=== PATIENT | female | born 1995 | race Caucasian/White ===

== ENCOUNTER 2018-02-17 20:02 | Emergency (ER) | payer OTHER ==
[2018-02-17 20:08] VITALS: BP 117/69; PULSE 78; RESP 18; TEMP 97.9
--- NOTE | 2018-02-17 20:44 | ED ---
Headache HPI - General Chief Complaint: Headache Stated Complaint: meningitis exposure Time Seen by Provider: 02/17/18 20:16 Source: RN notes reviewed, old records reviewed Mode of arrival: ambulatory Limitations: no limitations - History of Present Illness Initial Comments: Patient is a 22-year-old female presents to the emergency department today to complain of a headache and occasional neck pain for the past four days. Patient states she's had no fevers or chills. She does report that she was exposed to somebody who was recently diagnosed with meningitis. She does not know if it was bacterial or viral. Patient relates that she has had no fever, no cold like symptoms. Denies any nausea or vomiting chest pain or shortness of breath. - Related Data Home Medications Medication Instructions Recorded Confirmed No Known Home Medications [No 02/17/18 02/17/18 Known Home Medications] Allergies Allergy/AdvReac Type Severity Reaction Status Date / Time amoxicillin Allergy Swelling Verified 02/17/18 20:08 guaifenesin [From Robitussin] Allergy Unknown Verified 07/10/16 18:41 Review of Systems ROS Statement: Those systems with pertinent positive or pertinent negative responses have been documented in the HPI. ROS Other: All systems not noted in ROS Statement are negative. Past Medical History Past Medical History: No Reported History History of Any Multi-Drug Resistant Organisms: None Reported Past Surgical History: Tonsillectomy Past Psychological History: No Psychological Hx Reported Smoking Status: Never smoker Past Alcohol Use History: None Reported Past Drug Use History: None Reported General Exam - General Exam Comments Initial Comments: Well appearing 22 year old female, no acute distress. Limitations: no limitations General appearance: alert, in no apparent distress Head exam: Present: atraumatic, normocephalic, normal inspection Eye exam: Present: normal appearance, PERRL, EOMI. Absent: scleral icterus, conjunctival injection, periorbital swelling ENT exam: Present: normal exam, mucous membranes moist Neck exam: Present: normal inspection, full ROM, other (No meningeal signs, neck has full ROM. ). Absent: tenderness, meningismus, lymphadenopathy Respiratory exam: Present: normal lung sounds bilaterally. Absent: respiratory distress, wheezes, rales, rhonchi, stridor Cardiovascular Exam: Present: regular rate, normal rhythm, normal heart sounds. Absent: systolic murmur, diastolic murmur, rubs, gallop, clicks GI/Abdominal exam: Present: soft, normal bowel sounds. Absent: distended, tenderness, guarding, rebound, rigid Extremities exam: Present: normal inspection, full ROM, normal capillary refill. Absent: tenderness, pedal edema, joint swelling, calf tenderness Back exam: Present: normal inspection Neurological exam: Present: alert, oriented X3, CN II-XII intact Psychiatric exam: Present: normal affect, normal mood Skin exam: Present: warm, dry, intact, normal color. Absent: rash Course Vital Signs 02/17/18 20:06 Temperature 97.9 F Pulse Rate 78 Respiratory 18 Rate Blood Pressure 117/69 O2 Sat by Pulse 98 Oximetry Medical Decision Making - Medical Decision Making This is a well. 22-year-old female complains of intermittent headaches and some neck pain. Was exposed to somebody diagnosed with meningitis. Upon questioning other medical personnel I was likely a viral meningitis that was diagnosed in this area. Patient has no meningeal signs. She appears well. Afebrile. I offered to check lab work, I discussed the most definitive way to identify for meningitis is lumbar puncture. When patient was informed that she stated that she felt well and did not want to proceed with further testing. She stated that she just wanted to be seen and make sure that she had no meningeal signs. I reiterated if she had a fever or any other worsening signs or symptoms she must return for further evaluation. Patient agrees to do so. Disposition Clinical Impression: Meningitis exposure Disposition: HOME SELF-CARE Condition: Good Instructions: Acute Headache (ED) Additional Instructions: Patient has a Motrin Tylenol for pain. If there are any fevers or worsening neck pain or other symptoms please return to the emergency department for further testing. Is patient prescribed a controlled substance at d/c from ED?: No When asked, does pt state using other controlled substances?: No If prescribed controlled substance>3 days was MAPS reviewed?: No If opioid is for acute pain is fill amount 7 days or less?: No If Rx opioid, was Start Talking consent form obtained?: No Referrals: Geoff Mehta MD [Primary Care Provider] - 1-2 days Time of Disposition: 20:44
== END 2018-02-17 20:55 | disposition home or self-care (01) ==
LOC: EC 20:02
DX: Z20.828 Contact with and (suspected) exposure to other viral communicable diseases (principal); R51 Headache; M54.2 Cervicalgia; Z88.0 Allergy status to penicillin; Z88.8 Allergy status to other drugs, medicaments and biological substances
CPT/HCPCS: 99284

== ENCOUNTER 2019-10-15 09:27 | Inpatient (IN) | payer BC, OTHER ==
[2019-10-15] MEDS ORDERED: KETOROLAC 30 MG/ML 1 ML VIAL IVP STA (10:24)
--- NOTE | 2019-10-15 10:26 | ED ---
ENT HPI - General Source: patient, RN notes reviewed Mode of arrival: ambulatory Limitations: no limitations <Herb Alberts - Last Filed: 10/15/19 12:03> <Vic Kirk - Last Filed: 10/15/19 12:32> - General Chief complaint: ENT Stated complaint: Facial swelling Time Seen by Provider: 10/15/19 10:08 - History of Present Illness Initial comments: This a 24-year-old female presents emergency Department with chief complaint of left-sided facial swelling. Patient states that she was treated last week for sinus infection. Patient states that she passed her Z-Carlito and follow-up with her PCP who told her take Zyrtec. She used a nedipot on Sunday along with started on Biaxin and she's had worsening pain, facial swelling. Patient states that she's never had any like this in the past she reports subjective fever no significant cough, neck pain, neck stiffness or dizziness. Patient denies any chance . (Herb Alberts) - Related Data Home Medications Medication Instructions Recorded Confirmed Clarithromycin [Biaxin] 500 mg PO Q12HR 10/15/19 10/15/19 Ibuprofen [Motrin] 600 mg PO Q8HR PRN 10/15/19 10/15/19 diphenhydrAMINE [Benadryl] 50 mg PO DAILY PRN 10/15/19 10/15/19 Allergies Allergy/AdvReac Type Severity Reaction Status Date / Time amoxicillin Allergy Swelling Verified 10/15/19 12:12 guaifenesin [From Robitussin] Allergy Unknown Verified 10/15/19 12:12 Review of Systems ROS Other: All systems not noted in ROS Statement are negative. <Herb Alberts - Last Filed: 10/15/19 12:03> ROS Other: All systems not noted in ROS Statement are negative. <Vic Kirk - Last Filed: 10/15/19 12:32> ROS Statement: Those systems with pertinent positive or pertinent negative responses have been documented in the HPI. Past Medical History Past Medical History: No Reported History History of Any Multi-Drug Resistant Organisms: None Reported Past Surgical History: Tonsillectomy Past Psychological History: No Psychological Hx Reported Smoking Status: Never smoker Past Alcohol Use History: None Reported Past Drug Use History: None Reported <Herb Alberts - Last Filed: 10/15/19 12:03> General Exam Limitations: no limitations General appearance: alert, in no apparent distress Head exam: Present: atraumatic, normocephalic, normal inspection Eye exam: Present: normal appearance, PERRL, EOMI, periorbital swelling (Mild inferior left eye), other (No pain with ocular movement). Absent: scleral icterus, conjunctival injection ENT exam: Present: mucous membranes moist, TM's normal bilaterally, normal external ear exam, other (Moderate discomfort palpation to the left maxillary region, moderate swelling). Absent: normal oropharynx (No obvious dental abscess) Neck exam: Present: normal inspection, full ROM. Absent: tenderness, meningismus, lymphadenopathy Respiratory exam: Present: normal lung sounds bilaterally. Absent: respiratory distress, wheezes, rales, rhonchi, stridor Cardiovascular Exam: Present: normal rhythm, tachycardia, normal heart sounds. Absent: systolic murmur, diastolic murmur, rubs, gallop, clicks <Herb Alberts - Last Filed: 10/15/19 12:03> Course <Vic Kirk - Last Filed: 10/15/19 12:32> Vital Signs 10/15/19 10/15/19 09:47 11:59 Temperature 98 F Pulse Rate 120 H 86 Respiratory 18 16 Rate Blood Pressure 112/71 112/61 O2 Sat by Pulse 100 100 Oximetry - Reevaluation(s) Reevaluation #1: 10/15/19 12:31 PA supervision: I proceeded [id number] evaluation the patient she does present with complaints of left facial swelling she's been on antibiotics for several days but is getting worse CAT scan evidence does show facial sialitis and 18 abscess formation. Assistance in addition of sinusitis. I did discuss the case with Dr. Faulkner. H will be admitted with IV antibiotics and ENT consultation by Dr. York. Do agree with the assessment and plan. (Vic Kirk) Medical Decision Making - Lab Data Result diagrams: 10/15/19 10:50 10/15/19 10:50 <Herb Alberts - Last Filed: 10/15/19 12:03> - Lab Data Result diagrams: 10/15/19 10:50 10/15/19 10:50 <Vic Kirk - Last Filed: 10/15/19 12:32> - Medical Decision Making Patient CT shows pre-maxillary cellulitis with abscess formation. Patient be admitted for outpatient treatment with IV antibiotics and ENT (Herb Alberts) - Lab Data Lab Results 10/15/19 10/15/19 Range/Units 10:50 10:50 WBC 11.6 H (3.8-10.6) k/uL RBC 4.21 (3.80-5.40) m/uL Hgb 12.4 (11.4-16.0) gm/dL Hct 37.4 (34.0-46.0) % MCV 88.9 (80.0-100.0) fL MCH 29.4 (25.0-35.0) pg MCHC 33.1 (31.0-37.0) g/dL RDW 12.2 (11.5-15.5) % Plt Count 272 (150-450) k/uL Neutrophils % 85 % Lymphocytes % 8 % Monocytes % 5 % Eosinophils % 1 % Basophils % 0 % Neutrophils # 9.8 H (1.3-7.7) k/uL Lymphocytes # 1.0 (1.0-4.8) k/uL Monocytes # 0.5 (0-1.0) k/uL Eosinophils # 0.1 (0-0.7) k/uL Basophils # 0.0 (0-0.2) k/uL Sodium 142 (137-145) mmol/L Potassium 4.2 (3.5-5.1) mmol/L Chloride 109 H (98-107) mmol/L Carbon Dioxide 24 (22-30) mmol/L Anion Gap 9 mmol/L BUN 10 (7-17) mg/dL Creatinine 0.62 (0.52-1.04) mg/dL Est GFR (CKD-EPI)AfAm >90 (>60 ml/min/1.73 sqM) Est GFR (CKD-EPI)NonAf >90 (>60 ml/min/1.73 sqM) Glucose 93 (74-99) mg/dL Calcium 8.6 (8.4-10.2) mg/dL Total Bilirubin 1.5 H (0.2-1.3) mg/dL AST 20 (14-36) U/L ALT 9 (4-34) U/L Alkaline Phosphatase 77 (38-126) U/L Total Protein 7.5 (6.3-8.2) g/dL Albumin 4.2 (3.5-5.0) g/dL Disposition <Herb Alberts - Last Filed: 10/15/19 12:03> <Vic Kirk - Last Filed: 10/15/19 12:32> Clinical Impression: Cellulitis and abscess of face Disposition: ADMITTED IP TO THIS HOSP Condition: Fair Referrals: Gefof Mehta MD [Primary Care Provider] - 1-2 days
[2019-10-15 11:16] LABS: Basophils % (A) 0 %; Eosinophils # (A) 0.1 k/uL (0-0.7); Eosinophils % (A) 1 %; HCT 37.4 % (34.0-46.0); HGB 12.4 gm/dL (11.4-16.0); Lymphocytes % (A) 8 %; MCH 29.4 pg (25.0-35.0); MCHC 33.1 g/dL (31.0-37.0); MCV 88.9 fL (80.0-100.0); Mean Platelet Volume 8.8; Monocytes # (A) 0.5 k/uL (0-1.0); Monocytes % (A) 5 %; Neutrophils # (A) 9.8 k/uL (1.3-7.7); Neutrophils % (A) 85 %; Platelet Count 272 k/uL (150-450); RBC 4.21 m/uL (3.80-5.40); RDW 12.2 % (11.5-15.5); WBC 11.6 k/uL (3.8-10.6)
--- NOTE | 2019-10-15 11:20 | CT ---
EXAMINATION TYPE: CT sinus w con DATE OF EXAM: 10/15/2019 COMPARISON: None HISTORY: 24-year-old female with left sided facial swelling, sinus infection TECHNIQUE: Contiguous axial scanning of the paranasal sinuses performed with IV Contrast, patient inj ected with 100 mL of Isovue 300. Coronal reconstructions performed. CT DLP: 413.7 mGycm Automated exposure control for dose reduction was used. FINDINGS: Air fluid level right maxillary sinus. Mild to moderate mucosal thickening inferior left maxillary si nus. Trace mucosal thickening right sphenoid sinus and scattered throughout the ethmoid air cells. Fr ontal sinuses are well pneumatized. No osseous erosions or destruction of the sinus silva. There is left-sided premaxillary soft tissue swelling and thickening extending along the left lateral aspect of the nose and down to the anterior upper lip region. Additional soft tissue swelling extend s along the left perimandibular region. There is an underlying thick walled fluid collection which courses obliquely overlying the frontal pr ocesses of the left maxilla down to the midline alveolar ridge spanning 2.6 cm long and 1.2 cm thick, refer to coronal image 19 through 23 and axial images 20 through 29. No significant periodontal disease is identified. Globes appear symmetrical. No abnormal density within the orbits. IMPRESSION: 1. EXTENSIVE LEFT SIDED PREMAXILLARY CELLULITIS. CELLULITIS EXTENDS ALONG THE LATERAL ASPECT OF THE L EFT NOSE AND DOWN TO THE LEFT PREMANDIBULAR REGION. 2. UNDERLYING ABSCESS WHICH COURSES OBLIQUELY MEASURING 2.6 CM LONG AND 1.2 CM THICK. THIS IS LOCATED JUST ALONG THE LEFT LATERAL AND INFERIOR MARGIN OF THE NASAL APERTURE EXTENDING DOWN TO THE LEVEL OF THE MIDLINE MAXILLARY ALVEOLAR RIDGE. 3. AIR-FLUID LEVEL RIGHT MAXILLARY SINUS SUGGESTING ACUTE SINUSITIS. 4. BACKGROUND OF MILD CHRONIC VASQUEZ SINUS DISEASE. NO SIGNIFICANT PERIODONTAL DISEASE SEEN.
[2019-10-15 11:23] LABS: ALT 9 U/L (4-34); AST 20 U/L (14-36); African American GFR (CKD) >90 (>60 ml/min/1.73 sqM); Albumin 4.2 g/dL (3.5-5.0); Alkaline Phosphatase 77 U/L (38-126); Anion Gap 9 mmol/L; Blood Urea Nitrogen 10 mg/dL (7-17); Calcium 8.6 mg/dL (8.4-10.2); Carbon Dioxide 24 mmol/L (22-30); Chloride 109 mmol/L (98-107); Glucose 93 mg/dL (74-99); Non-African American GFR(CKD) >90 (>60 ml/min/1.73 sqM); Potassium 4.2 mmol/L (3.5-5.1); Sodium 142 mmol/L (137-145); Total Bilirubin 1.5 mg/dL (0.2-1.3); Total Protein 7.5 g/dL (6.3-8.2)
[2019-10-15] MEDS ORDERED: CLINDAMYCIN 600 MG in DEXTROSE 5% IN WATER 50 ML IVPB STA ×2 (12:02)
[2019-10-15] MEDS ORDERED: HYDROcodone/APAP 5-325MG 1 EACH TAB PO PRN (12:04)
[2019-10-15] MEDS: SODIUM CHLORIDE 0.9% 1,000 ML IV SCH (13:10)
[2019-10-15] MEDS ORDERED: ACETAMINOPHEN TAB 325 MG TAB PO PRN (14:45)
--- NOTE | 2019-10-15 16:56 | P.HPIM ---
History of Present Illness H&P Date: 10/15/19 Chief Complaint: Facial swelling This is a 24-year-old female with no significant past medical history, presented to the ER with complaints of sinusitis, left-sided facial swelling, failed outpatient treatment of 3 weeks. Completed Z-Carlito, Zyrtec, with no improvement. Attempted using medical pot, return to PCP received Rx for Biaxin. Continued having worsening sinus pain and facial edema. Reports possible fever, no cough, no neck pain, no neck stiffness. Sinus CT reporting extensive left-sided premaxillary cellulitis extending along the lateral aspect of the leftand down to the left mandibular region, underlying abscess, measuring 2.6 cm long and 1.2 cm thick located along the left lateral and inferior margin of the nasal aperture extending down to the midline maxillary alveolar ridge, air-fluid level right maxillary sinus suggestive of acute sinusitis, mild chronic pansinus disease with no significant peridontal disease seen. Afebrile, WBC elevated 11.6. Vital signs stable, maintaining O2 sats in the high 90s on room air. IV antibiotics of clindamycin initiated. ENT consulted. Review of Systems ROS Other: All systems not noted in ROS Statement are negative. ROS Statement: Those systems with pertinent positive or pertinent negative responses have been documented in the HPI. Past Medical History Past Medical History: No Reported History History of Any Multi-Drug Resistant Organisms: None Reported Past Surgical History: Tonsillectomy Past Anesthesia/Blood Transfusion Reactions: No Reported Reaction Smoking Status: Never smoker Medications and Allergies Home Medications Medication Instructions Recorded Confirmed Type Clarithromycin [Biaxin] 500 mg PO Q12HR 10/15/19 10/15/19 History Ibuprofen [Motrin] 600 mg PO Q8HR PRN 10/15/19 10/15/19 History diphenhydrAMINE [Benadryl] 50 mg PO DAILY PRN 10/15/19 10/15/19 History Allergies Allergy/AdvReac Type Severity Reaction Status Date / Time amoxicillin Allergy Swelling Verified 10/15/19 12:12 guaifenesin [From Robitussin] Allergy Unknown Verified 10/15/19 12:12 Physical Exam Vitals: Vital Signs Temp Pulse Pulse Resp BP BP Pulse Ox 10/15/19 14:59 98.3 F 95 16 98/66 98 10/15/19 11:59 86 16 112/61 100 10/15/19 09:47 98 F 120 H 18 112/71 100 Intake and Output 10/15/19 10/15/19 10/15/19 06:59 14:59 22:59 Other: Voiding Method Toilet # Voids 1 Weight 63.503 kg 63.503 kg PHYSICAL EXAM: VITAL SIGNS: As above GENERAL: Sitting up on stretcher, no acute distress HEENT: Left-sided facial edema involving ethmoid sinus into facial nerves. Conjunctivae normal. eyes normal. NECK: No JVD. No thyroid enlargement. No LNs. Trachea midline. CARDIOVASCULAR: S1, S2 regular.No murmur RESPIRATION: Breath sounds diminished in the bases. No rhonchi or crackles. No bronchial breathing. ABDOMEN: Soft, nontender . No guarding. no masses palpable. No ascites, No hepatosplenomegaly.Bowel sounds heard. LEGS: No edema. no swelling PSYCHIATRY: Alert and oriented X3, mood and affect normal. NERVOUS SYSTEM: Cranial N 2-12 grossly normal. Moves all 4 limbs. No focal deficits. Strength and sensation grossly intact.. Skin: no rash Joints: No active swelling. No inflammation. Lymphatic system. No LN neck axilla. Results CBC & Chem 7: 10/15/19 10:50 10/15/19 10:50 Labs: Abnormal Lab Results - Last 24 Hours (Table) 10/15/19 10/15/19 Range/Units 10:50 10:50 WBC 11.6 H (3.8-10.6) k/uL Neutrophils # 9.8 H (1.3-7.7) k/uL Chloride 109 H (98-107) mmol/L Total Bilirubin 1.5 H (0.2-1.3) mg/dL Thrombosis Risk Factor Assmnt - Choose All That Apply Each Factor Represents 1 point: Medical pt on bed rest Other Risk Factors: No Other congenital or acquired thrombophilia - If yes, enter type in comment: No Thrombosis Risk Factor Assessment Total Risk Factor Score: 1 Thrombosis Risk Factor Assessment Level: Low Risk Assessment and Plan Assessment: Acute sinusitis, failed outpatient treatment with underlying abscess along the left lateral nasal extending to the midline maxillary alveolar ridge measuring 2.6 cm long by 1.2 cm thick Leukocytosis secondary to the above Plan: Continue current medication regime ,monitoring and symptomatic treatment. HCG ordered. Maintain IV fluid hydration, IV antibiotics of clindamycin to 6 hours. ENT consult in place, recommendations pending. Further recommendations to follow. The impression and plan of care has been dictated as directed. : I performed a history and examination of this patient, discussed the same with the dictator. I agree with the dictator's note ,documented as a scribe. Any additional findings or plans will be noted.
[2019-10-15] MEDS: CLINDAMYCIN 600 MG in DEXTROSE 5% IN WATER 50 ML IVPB SCH ×4 (18:08→23:36)
[2019-10-15] MEDS: KETOROLAC 30 MG/ML 1 ML VIAL IVP PRN (18:32)
[2019-10-16] MEDS: KETOROLAC 30 MG/ML 1 ML VIAL IVP PRN (02:56)
[2019-10-16] MEDS: SODIUM CHLORIDE 0.9% 1,000 ML IV SCH ×2 (03:26→18:12)
[2019-10-16] MEDS: CLINDAMYCIN 600 MG in DEXTROSE 5% IN WATER 50 ML IVPB SCH ×8 (05:23→23:52)
[2019-10-16 09:12] LABS: Basophils % (A) 0 %; Eosinophils # (A) 0.1 k/uL (0-0.7); Eosinophils % (A) 1 %; HCT 33.4 % (34.0-46.0); HGB 11.1 gm/dL (11.4-16.0); Lymphocytes # (A) 0.4 k/uL (1.0-4.8); Lymphocytes % (A) 5 %; MCH 29.4 pg (25.0-35.0); MCHC 33.1 g/dL (31.0-37.0); MCV 88.9 fL (80.0-100.0); Mean Platelet Volume 8.9; Monocytes # (A) 0.3 k/uL (0-1.0); Monocytes % (A) 4 %; Neutrophils # (A) 6.3 k/uL (1.3-7.7); Neutrophils % (A) 89 %; Platelet Count 223 k/uL (150-450); RBC 3.76 m/uL (3.80-5.40); RDW 12.1 % (11.5-15.5); WBC 7.1 k/uL (3.8-10.6)
[2019-10-16 09:29] LABS: African American GFR (CKD) >90 (>60 ml/min/1.73 sqM); Anion Gap 10 mmol/L; Blood Urea Nitrogen 12 mg/dL (7-17); Calcium 8.2 mg/dL (8.4-10.2); Carbon Dioxide 22 mmol/L (22-30); Chloride 107 mmol/L (98-107); Glucose 97 mg/dL (74-99); Non-African American GFR(CKD) >90 (>60 ml/min/1.73 sqM); Potassium 3.8 mmol/L (3.5-5.1); Sodium 139 mmol/L (137-145)
[2019-10-16] MEDS ORDERED: ONDANSETRON 4 MG/2 ML VIAL IVP PRN (13:19)
[2019-10-16] MEDS: DEXAMETHASONE SOD PHOSPHATE 10 MG/ML 1 ML VIAL IV SCH ×2 (14:45→21:14)
[2019-10-16] MEDS: PANTOPRAZOLE 40 MG/10 ML VIAL IVP SCH (14:45)
--- NOTE | 2019-10-16 16:29 | P.PN ---
Subjective Progress Note Date: 10/16/19 This is a 24-year-old female with no significant past medical history, presented to the ER with complaints of sinusitis, left-sided facial swelling, failed outpatient treatment of 3 weeks. Completed Z-Carlito, Zyrtec, with no improvement. Attempted using medical pot, return to PCP received Rx for Biaxin. Continued having worsening sinus pain and facial edema. Reports possible fever, no cough, no neck pain, no neck stiffness. Sinus CT reporting extensive left-sided premaxillary cellulitis extending along the lateral aspect of the leftand down to the left mandibular region, underlying abscess, measuring 2.6 cm long and 1.2 cm thick located along the left lateral and inferior margin of the nasal aper ture extending down to the midline maxillary alveolar ridge, air-fluid level right maxillary sinus suggestive of acute sinusitis, mild chronic pansinus disease with no significant peridontal disease seen. Afebrile, WBC elevated 11.6. Vital signs stable, maintaining O2 sats in the high 90s on room air. IV antibiotics of clindamycin initiated. ENT consulted. 10/16/2019 maintaining on IV clindamycin. Significant clinical improvement, facial edema much improved, currently afebrile with T-max 99.4, WBC normalized at 7.1. Hemoglobin 11.1. Blood cultures pending. Maintained on IV fluid hydration. Tolerating diet with no nausea vomiting or diarrhea. Evaluated by ENT recommending another 24 hours of IV antibiotics. Pain controlled on Toradol. Denies chest pain, palpitations or shortness of breath. Objective - Vital Signs Vital signs: Vital Signs Temp 98.5 F 10/16/19 11:38 Pulse 107 H 10/16/19 11:38 Resp 18 10/16/19 11:38 BP 105/58 10/16/19 11:38 Pulse Ox 100 10/16/19 11:38 Intake & Output 10/15/19 10/16/19 10/16/19 18:59 06:59 18:59 Intake Total 1929 240 Balance 1929 240 Weight 63.503 kg Intake: Intake, IV Titration 750 Amount Sodium Chloride 0.9% 1, 750 000 ml @ 75 mls/hr IV . [id number] DOMINGO Rx#:[id number] Oral 1180 240 Other: Voiding Method Toilet Toilet Toilet # Voids 1 2 3 - Exam PHYSICAL EXAM: VITAL SIGNS: As above GENERAL: Sitting up in bed, no acute distress HEENT: Left-sided facial edema improving with increased sensation affected area. Conjunctivae normal. eyes normal. NECK: No JVD. No thyroid enlargement. No LNs. Trachea midline. CARDIOVASCULAR: S1, S2 regular.No murmur RESPIRATION: Breath sounds diminished in the bases. No rhonchi or crackles. No wheezing. ABDOMEN: Soft, nontender . No guarding. no masses palpable. Bowel sounds heard. LEGS: No edema. no swelling PSYCHIATRY: Alert and oriented X3, mood and affect normal. NERVOUS SYSTEM: Cranial N 2-12 grossly normal. Moves all 4 limbs. No focal deficits. Strength and sensation grossly intact.. Skin: no rash - Labs CBC & Chem 7: 10/16/19 08:48 10/16/19 08:48 Labs: Abnormal Lab Results - Last 24 Hours (Table) 10/16/19 10/16/19 Range/Units 08:48 08:48 RBC 3.76 L (3.80-5.40) m/uL Hgb 11.1 L (11.4-16.0) gm/dL Hct 33.4 L (34.0-46.0) % Lymphocytes # 0.4 L (1.0-4.8) k/uL Calcium 8.2 L (8.4-10.2) mg/dL Microbiology - Last 24 Hours (Table) 10/15/19 11:08 Blood Culture - Preliminary Blood No Growth after 24 hours Assessment and Plan Assessment: Acute sinusitis, failed outpatient treatment with underlying abscess along the left lateral nasal extending to the midline maxillary alveolar ridge measuring 2.6 cm long by 1.2 cm thick, improving Leukocytosis secondary to the above Plan: Continue current medication regime ,monitoring and symptomatic treatment. HCG ordered. Continue IV fluid hydration, IV antibiotics of clindamycin to 6 hours for another 24 hours as per ENT. Discharge planning in progress for tomorrow, pending ENT clearance. The impression and plan of care has been dictated as directed. : I performed a history and examination of this patient, discussed the same with the dictator. I agree with the dictator's note ,documented as a scribe. Any additional findings or plans will be noted.
[2019-10-17] MEDS: SODIUM CHLORIDE 0.9% 1,000 ML IV SCH ×2 (04:25→10:09)
[2019-10-17] MEDS: CLINDAMYCIN 600 MG in DEXTROSE 5% IN WATER 50 ML IVPB SCH ×4 (05:17→10:08)
--- NOTE | 2019-10-17 05:29 | CONS ---
CONSULTATION DATE OF ADMISSION: 10/15/2019 DATE OF CONSULTATION: 10/16/2019. REASON FOR CONSULTATION: Left facial cellulitis/abscess. HISTORY OF PRESENT ILLNESS: This patient is a pleasant 24-year-old female who states that over the past 2 to 3 weeks she has experienced increasing swelling, pressure and pain in the left side of her face. She has seen her family physician and has been placed on several courses of oral antibiotics including a Z-Carlito and also by Biaxin. She was placed on these medications because she has a known to allergy to PENICILLIN. The apparent infection did not respond to this medication and the patient was subsequently seen in the emergency room department and was eventually admitted to the hospital for definitive treatment. After admission to the hospital, she was placed on IV antibiotics, namely Cleocin 600 mg IV q.6 hours. Since her initial admission, the patient states that she feels much better today. She also relates that she felt that there was some purulent material that may have drained from the area. A CT scan of her neck revealed that the patient had moderate facial cellulitis on the left side and a probable abscess pocket located in the left premaxilla region. The patient states that the pain has markedly decreased. She is able to eat and the area is no longer exquisitely tender to touch. PAST MEDICAL HISTORY: Past medical history reveals the patient has a known allergy to AMOXICILLIN. She is a nonsmoker. She is not currently on any medications. REVIEW OF SYSTEM: The review of systems is noncontributory. PHYSICAL EXAMINATION: This patient is a very pleasant 24-year-old female who is alert, cooperative and well oriented to time and place. The patient is not experiencing any significant discomfort at this time. HEENT EXAMINATION: Patient is normocephalic. Tympanic membranes are normal. Middle ear spaces are free of any fluid or infection. Pupils are equal, round, reactive to light and accommodation. Extraocular movements are within normal limits. Intranasal examination reveals the septum slightly deviated. No evidence of any intranasal lesions or swelling. Examination of the oropharynx is unremarkable. Palpation of the face including bimanual palpation of the upper buccal area reveals some slight firmness, but no definite fluctuance or suspicious areas of probable abscess. In addition to this, intraoral examination does not detect any obvious areas where this region has drained. The area is only slightly tender to very deep palpation and again I cannot locate any definite pocket of fluid on the patient's face at this time. There is definitely cellulitis present still, however. Palpation of the neck is negative for any neck adenopathy. Cranial nerves 2 through 12 and remainder of the head and neck exam is unremarkable. CHEST/CARDIOVASCULAR: Both lung ramirez are clear to percussion and auscultation. Patient is in regular sinus rhythm. S1, S2 are present any murmurs. ABDOMEN: There is no evidence masses, megaly, or tenderness. The abdomen is soft. The remainder of physical examination is essentially unremarkable. IMPRESSION: Left facial cellulitis with resolving left facial abscess in the premaxilla area. PLAN: At this time I discussed with the patient and her family that because it seems as if this region has spontaneously drained, I feel that it will probably continue to drain and this may obviate any need for any surgical drainage. However, I will check the patient tomorrow on 10/17/2019, around noon time and see how she is progressing. Certainly, if at that time she is continuing to improve and I do not detect any evidence of any obvious abscess, I feel this patient could be discharged on oral Cleocin for 7 days at 300 mg p.o. t.i.d. I have cautioned the patient and her family that should she develop any diarrhea she should immediately stop the medication and call her primary care physician. I am going to have the nurses give the patient a regimen of Decadron intravenously which should help reduce some of the facial swelling. The patient's father showed me a picture of what the patient appeared like several days ago and the improvement is quite obvious considering that at that time her left eye was almost swollen shut. I want to take this opportunity to thank you for allowing me to assist you in the care of your patient and as I stated above I will see this patient tomorrow at approximately noon after I finished my surgical cases and make a decision as to whether or not she can be discharged to home on oral medications. If I can be of any further assistance, please feel free to call my office. BAR / NOEMI: [phone] /
[2019-10-17] MEDS ORDERED: DEXAMETHASONE SOD PHOSPHATE 4 MG/ML 1 ML VIAL IV SCH ×2 (05:30→21:30)
[2019-10-17 05:47] VITALS: RESP 16
[2019-10-17] MEDS: PANTOPRAZOLE 40 MG/10 ML VIAL IVP SCH (07:13)
[2019-10-17 09:31] LABS: African American GFR (CKD) >90 (>60 ml/min/1.73 sqM); Anion Gap 10 mmol/L; Blood Urea Nitrogen 9 mg/dL (7-17); Calcium 8.7 mg/dL (8.4-10.2); Carbon Dioxide 22 mmol/L (22-30); Chloride 107 mmol/L (98-107); Glucose 132 mg/dL (74-99); Non-African American GFR(CKD) >90 (>60 ml/min/1.73 sqM); Potassium 4.1 mmol/L (3.5-5.1); Sodium 139 mmol/L (137-145)
[2019-10-17 09:39] LABS: HCT 34.7 % (34.0-46.0); HGB 11.4 gm/dL (11.4-16.0); MCH 29.5 pg (25.0-35.0); MCHC 32.9 g/dL (31.0-37.0); MCV 89.8 fL (80.0-100.0); Mean Platelet Volume 8.6; Platelet Count 229 k/uL (150-450); RBC 3.86 m/uL (3.80-5.40); RDW 12.1 % (11.5-15.5); WBC 3.9 k/uL (3.8-10.6)
[2019-10-17 11:46] VITALS: BP 101/65; PULSE 74; TEMP 98
--- NOTE | 2019-10-17 13:10 | P.DS ---
Providers Date of admission: 10/15/19 12:31 Expected date of discharge: 10/17/19 Attending physician: Rell Faulkner Consults: 10/15/19 13:03 Consult Physician Urgent Consulting Provider: Denton York Consult Reason/Comments: Facial cellulitis, abscess Do you want consulting provider notified?: Yes Primary care physician: Geoff Kirkbride Center Course: Final Diagnoses: Acute sinusitis, failed outpatient treatment. left facial cellulitis with underlying abscess along the left lateral nasal extending to the midline maxillary alveolar ridge measuring 2.6 cm long by 1.2 cm thick, improving Leukocytosis secondary to the above Hospital course:This is a 24-year-old female with no significant past medical history, presented to the ER with complaints of sinusitis, left-sided facial swelling, failed outpatient treatment of 3 weeks. Completed Z-Carlito, Zyrtec, with no improvement. Attempted using medical pot, return to PCP received Rx for Biaxin. Continued having worsening sinus pain and facial edema. Reports possible fever, no cough, no neck pain, no neck stiffness. Sinus CT reporting extensive left-sided premaxillary cellulitis extending along the lateral aspect of the leftand down to the left mandibular region, underlying abscess, measuring 2.6 cm long and 1.2 cm thick located along the left lateral and inferior margin of the nasal aperture extending down to the midline maxillary alveolar ridge, air-fluid level right maxillary sinus suggestive of acute sinusitis, mild chronic pansinus disease with no significant peridontal disease seen. Afebrile, WBC elevated 11.6. Vital signs stable, maintaining O2 sats in the high 90s on room air. IV antibiotics of clindamycin initiated. ENT consulted. 10/16/2019 maintaining on IV clindamycin. Significant clinical improvement, facial edema much improved, currently afebrile with T-max 99.4, WBC normalized at 7.1. Hemoglobin 11.1. Blood cultures pending. Maintained on IV fluid hydration. Tolerating diet with no nausea vomiting or diarrhea. Evaluated by ENT recommending another 24 hours of IV antibiotics. Pain controlled on Toradol. Denies chest pain, palpitations or shortness of breath. Evaluated by a Dr. Denton York, ENT surgery, recommendations noted and appreciated. Maintained on IV clindamycin, IV Decadron with significant clinical improvement. Reevaluation today by ENT pending; potential I/D, potentially another 24 hours on IV antibiotics. Patient will be discharged home in a stable condition with guarded prognosis pending ENT clearance, final DC recommendations. - Exam GENERAL:A&OX3, NAD, sitting up in chair. HEENT: Left-sided facial edema improving with increased sensation affected area. Conjunctivae normal. eyes normal. NECK: No JVD. No thyroid enlargement. No LNs. Trachea midline. CARDIOVASCULAR: S1, S2 regular.No murmur RESPIRATION: Breath sounds diminished in the bases. No rhonchi or crackles. No wheezing. ABDOMEN: Soft, nontender . No guarding. no masses palpable. Bowel sounds heard. LEGS: No edema. no swelling PSYCHIATRY: Alert and oriented X3, mood and affect normal. NERVOUS SYSTEM: Cranial N 2-12 grossly normal. Moves all 4 limbs. No focal deficits. Strength and sensation grossly intact.. Skin: no rash The impression and plan of care has been dictated as directed. : I performed a history and examination of this patient, discussed the same with the dictator. I agree with the dictator's note ,documented as a scribe. Any additional findings or plans will be noted. Patient Condition at Discharge: Stable Plan - Discharge Summary Discharge Rx Participant: No New Discharge Prescriptions: New Clindamycin [Cleocin] 300 mg PO TID #42 capsule No Action Ibuprofen [Motrin] 600 mg PO Q8HR PRN PRN Reason: Pain Or Fever > 100.5 Discharge Medication List Ibuprofen [Motrin] 600 mg PO Q8HR PRN 10/15/19 [History] Clindamycin [Cleocin] 300 mg PO TID #42 capsule 10/17/19 [Rx] Follow up Appointment(s)/Referral(s): Denton York MD [STAFF PHYSICIAN] - 1 Week (Patient to call Dr. York's office sunday morning to schedule follow up appointment. The office is closed at time of discharge. ) Geoff Mehta MD [Primary Care Provider] - 10/22/19 4:15 pm Ambulatory/Diagnostic Orders: Complete Blood Count w/diff [LAB.AMB] Time Frame: 3 Days, Location: None Selected Patient Instructions/Handouts: Clindamycin (By mouth), Cellulitis (DC), Abscess (ED) Activity/Diet/Wound Care/Special Instructions: Pending Dr. Denton York clearance
== END 2019-10-17 15:20 | disposition home or self-care (01) | DRG 603 ==
LOC: EC 09:27 → 5NMEDONC 12:31
PROVIDERS: ADMIT Family Medicine; ATTEND Family Medicine
DX: L02.01 Cutaneous abscess of face (principal); L03.211 Cellulitis of face; J01.00 Acute maxillary sinusitis, unspecified; Z88.0 Allergy status to penicillin; Z88.8 Allergy status to other drugs, medicaments and biological substances
CPT/HCPCS: 36415; 70487; 80048; 80053; 81025; 85025; 85027; 87040; 96361; 96365; 96375; 99284

== ENCOUNTER 2020-04-24 20:29 | Emergency (ER) | payer BC ==
[2020-04-24 20:38] VITALS: PULSE 98
--- NOTE | 2020-04-24 21:39 | XR ---
EXAMINATION TYPE: XR forearm LT DATE OF EXAM: 04/24/2020 COMPARISON: NONE HISTORY: Fall. Pain. TECHNIQUE: 2 views FINDINGS: Radius and ulna appear intact. Carpal bones are intact. Elbow joint is intact. There is no sign of elbow joint effusion. IMPRESSION: Negative left forearm exam.
--- NOTE | 2020-04-24 21:41 | XR ---
EXAMINATION TYPE: XR elbow complete LT DATE OF EXAM: 04/24/2020 COMPARISON: NONE HISTORY: Fall. Pain. TECHNIQUE: 3 views FINDINGS: Elbow joint spaces are normal. There is elbow joint effusion with posterior fat pad sign. T here is slight irregularity of the cortex of the lateral aspect of the radial head. IMPRESSION: Elbow joint effusion. Possible nondisplaced cortical fracture lateral aspect of the left femoral neck.
[2020-04-24] MEDS ORDERED: HYDROcodone/APAP 5-325MG 1 EACH TAB PO STA (22:15)
[2020-04-24 22:21] VITALS: BP 127/77; RESP 16; TEMP 98.6
[2020-04-24] MEDS ORDERED: IBUPROFEN 600 MG STARTER PACK 4 TAB BTL PO STA (22:21)
--- NOTE | 2020-04-24 22:23 | ED ---
General Adult HPI - General Chief complaint: Extremity Injury, Upper Stated complaint: Fall, L Elbow Injury Time Seen by Provider: 04/24/20 21:00 Source: patient, RN notes reviewed, old records reviewed Mode of arrival: ambulatory Limitations: no limitations - History of Present Illness Initial comments: 25-year-old female patient presents ED for evaluation of left elbow injury. Patient reports that she was standing on a skateboard in her house when it slipped and she fell backwards landing on her left elbow. Denies any trauma to head or neck. Denies any other acute complaints. Systemic: Pt denies fatigue, fever/chills, rash. Pt denies weakness, night sweats, weight loss. Neuro: Pt denies headache, visual disturbances, syncope or pre-syncope. HEENT: Pt denies ocular discharge or irritation, otalgia, rhinorrhea, pharyngitis or notable lymphadenopathy. Cardiopulmonary: Pt denies chest pain, SOB, heart palpitations, dyspnea on exertion. Abdominal/GI: Pt denies abdominal pain, n/v/d. : Pt denies dysuria, burning w/ urination, frequency/urgency. Denies new onset urinary or bowel incontinence. Neuro: Pt denies new onset weakness, paresthesias. - Related Data Home Medications Medication Instructions Recorded Confirmed Ibuprofen [Motrin] 600 mg PO Q8HR PRN 10/15/19 10/15/19 Previous Rx's Medication Instructions Recorded Clindamycin [Cleocin] 300 mg PO TID #42 capsule 10/17/19 Allergies Allergy/AdvReac Type Severity Reaction Status Date / Time amoxicillin Allergy Swelling Verified 04/24/20 20:39 guaifenesin [From Robitussin] Allergy Unknown Verified 04/24/20 20:39 Review of Systems ROS Statement: Those systems with pertinent positive or pertinent negative responses have been documented in the HPI. ROS Other: All systems not noted in ROS Statement are negative. Past Medical History Past Medical History: No Reported History History of Any Multi-Drug Resistant Organisms: None Reported Past Surgical History: Tonsillectomy Past Anesthesia/Blood Transfusion Reactions: No Reported Reaction Past Psychological History: No Psychological Hx Reported Smoking Status: Never smoker Past Alcohol Use History: None Reported Past Drug Use History: None Reported General Exam - General Exam Comments Initial Comments: Constitutional: NAD, AOX3, Pt has pleasant affect. HEENT: NC/AT, trachea midline, neck supple, no lymphadenopathy. Posterior pharynx non erythematous, without exudates. External ears appear normal, without discharge. Mucous membranes moist. Eyes PERRLA, EOM intact. There is no scleral icterus. No pallor noted. Cardiopulmonary: RRR, no murmurs, rubs or gallops, no JVD noted. Lungs CTAB in anterior and posterior ramirez. No peripheral edema. Abdominal exam: Abdomen soft and non-distended. Abdomen non-tender to palpation in all 4 quadrants. Bowel sounds active in LLQ. No hepatosplenomegaly. No ecchymosis Neuro: CN II-XII grossly intact. No nuchal rigidity. No raccon eyes, no mixon sign, no hemotympanum. No cervical spinal tenderness. MSK: Tenderness to left elbow radial head region. No proximal humerus or mid/distal radius/ulna tenderness no hand tenderness. Radial pulse +2. Sensation intact. Full active range of motion of fingers. Limitations: no limitations Course Vital Signs 04/24/20 20:35 Temperature 98.1 F Pulse Rate 98 Respiratory 18 Rate Blood Pressure 121/76 O2 Sat by Pulse 99 Oximetry Procedures - Orthopedic Splinting/Casting Injury #1 Side: left Upper Extremity Injury Location: long arm Upper Extremity Immobilizer: posterior splint Medical Decision Making - Medical Decision Making 25-year-old female patient presents to ED for evaluation of left elbow injury after falling and landing on it. She denies any trauma to her neck denies any other complaints. Plain film doesn't display nondisplaced radial head fracture. Patient placed in a posterior splint. Neurovascularly intact before and after splint placement. Patient will be given a sling I discussed with patient that she needs to take the sling off and range her shoulder multiple times per day to prevent frozen shoulder. Patient will discharge the patient primary cardiac follow-up. Return to ER if condition worsens. Case discussed with Dr. Gooden. Disposition Clinical Impression: Radial head fracture Disposition: HOME SELF-CARE Condition: Stable Instructions (If sedation given, give patient instructions): Elbow Fracture (ED) Additional Instructions: Continue to wear splint. wear sling during the day. Take sling off at least 6 times per day for gentle range of motion of the shoulder. follow-up with orthopedic consult tomorrow. Use Tylenol and Motrin for pain. Return to ER if any worsening symptoms. Is patient prescribed a controlled substance at d/c from ED?: No Referrals: Geoff Mehta MD [Primary Care Provider] - 1-2 days Herb Hernandez DO [Doctor of Osteopathic Medicine] - 1-2 days
== END 2020-04-24 22:39 | disposition home or self-care (01) ==
LOC: EC 20:29
DX: S52.125A Nondisplaced fracture of head of left radius, initial encounter for closed fracture (principal); Z88.0 Allergy status to penicillin; Z88.8 Allergy status to other drugs, medicaments and biological substances; V00.131A Fall from skateboard, initial encounter; Y93.51 Activity, roller skating (inline) and skateboarding
CPT/HCPCS: 29105; 99284